=== PATIENT | female | born 1995 | race Caucasian/White ===

== ENCOUNTER 2023-08-13 06:28 | Emergency (ER) | payer BC ==
[~2023-08-13] VITALS: Ht 160 cm; Wt 108.9 kg
[2023-08-13 06:36] VITALS: BP_SYST 130; PULSE 96; RESP 22; TEMP 96.8; O2SAT 100
[2023-08-13] MEDS: ONDANSETRON HCL 4 MG/2 ML VIAL IVP ONE (07:22)
[2023-08-13 07:24] LABS: HEMATOCRIT 43.8 % (36-48); HEMOGLOBIN 14.8 g/dL (12.0-16.0); MEAN CORPUSCULAR HEMOGLOBIN 28 pg (27-31); MEAN CORPUSCULAR HGB CONC 34 % (32-36); MEAN CORPUSCULAR VOLUME 83 fL (79.0-98.0); PLATELET COUNT (AUTO) 351 K/uL (130-430); RED BLOOD CELL COUNT(AUTO) 5.26 MIL/uL (4.2-6.2); WHITE BLOOD COUNT (AUTO) 18.8 K/uL (4.8-10.8)
[2023-08-13 07:48] LABS: BAND % (MANUAL) 6 % (0-6); BASOPHILS % (MANUAL) 0 % (0-2); EOSINOPHILS % (MANUAL) 0 % (0-7); LYMPHOCYTES % (MANUAL) 3 % (20-46); MONOCYTES % (MANUAL) 4 % (0-11)
[2023-08-13 07:49] LABS: CALCIUM 9.1 mg/dL (8.4-11.0); CREATININE 0.77 mg/dL (0.55-1.30); PLATELET ESTIMATE ADEQUATE (ADEQUATE); POTASSIUM 3.8 mmol/L (3.5-5.1)
[2023-08-13 07:50] LABS: SERUM HCG (QUALITATIVE) NEGATIVE (NEGATIVE)
[2023-08-13 07:53] LABS: ALBUMIN 3.8 g/dL (3.4-4.8); BILIRUBIN,DIRECT 0.1 mg/dL (0.0-0.3); TOTAL BILIRUBIN 0.4 mg/dL (0.0-1.0); TOTAL PROTEIN, SERUM 8.3 g/dL (6.4-8.3)
[2023-08-13] MEDS: NACL 0.9% 1,000 ML IV ONE (08:43)
[2023-08-13 10:34] LABS: BILIRUBIN,URINE NEGATIVE (NEGATIVE); CLARITY/URINE CLEAR (CLEAR); COLOR,URINE YELLOW (YELLOW); GLUCOSE,URINE NEGATIVE (NEGATIVE); KETONES,URINE NEGATIVE (NEGATIVE); LEUKOCYTE ESTERASE ,URINE NEGATIVE (NEGATIVE); NITRITE, URINE NEGATIVE (NEGATIVE); PH,URINE 5.5 (5.0-8.0); PROTEIN URINE NEGATIVE (NEGATIVE); UROBILINOGEN,URINE 0.2 (0.2-1.0)
[2023-08-13 10:53] LABS: BLOOD, URINE TRACE (NEGATIVE)
[2023-08-13 11:11] LABS: BACTERIA,URINE FEW /HPF (None Seen); CALCIUM OXALATE CRYSTALS,UR 0-10 /HPF (None Seen); MUCUS,URINE 3+ /LPF (None Seen); RBC,URINE 0-3 /HPF (0-3)
[2023-08-13] MEDS ORDERED: ONDA-8 TL (11:29)
[2023-08-13 12:06] VITALS: BP_SYST 128; PULSE 115; RESP 17; TEMP 98.7; O2SAT 99
== END 2023-08-13 12:05 | disposition home or self-care (01) ==
LOC: SED 06:28
DX: K52.9 Noninfective gastroenteritis and colitis, unspecified (principal); R11.10 Vomiting, unspecified; D72.829 Elevated white blood cell count, unspecified; Z79.899 Other long term (current) drug therapy
CPT/HCPCS: 99283; 96374; 96361; 85027; 80076; 80048; 81001; 84703; 83690; 85007; 36415; 81000; 81015; J2405; J7030